=== PATIENT | female | born 2000 | race African-American/Black ===

== ENCOUNTER 2023-11-11 09:50 | Emergency (ER) | payer OTHER, MEDICAID, SELFPAY ==
[2023-11-11 09:56] VITALS: BP 138/84; PULSE 104; RESP 18; TEMP 37; O2SAT 100; BMI 29.9
--- NOTE | 2023-11-11 10:22 | PC.NURSE ---
Pt c/o SOB x2 days. Pt denies having any cp, fever, pain or being around anyone that has been sick. Pt states that she is unsure if this is anxiety or if she is actually sick. Pt has never been formally dx with anxiety or panic attack. Pt a&ox4. Answers all questions appropriately and speaking in full sentences.
[2023-11-11 10:55] LABS: Influenza A - CEPHEID Flu A NEGATIVE (NEGATIVE); Influenza B - CEPHEID Flu B NEGATIVE (NEGATIVE); Respiratory Syncytial Virus Negative (Negative)
[2023-11-11 10:57] LABS: COVID-19 CEPHEID 4-PLEX PCR Negative (Negative)
--- NOTE | 2023-11-11 11:20 | ED.SOB ---
HPI - SOB/Dyspnea <Ayanna Dorsey PA-C - Last Filed: 11/11/23 14:09> General Chief Complaint: Shortness of Breath/Dyspnea Stated Complaint: T-2 SOB Time Seen by Provider: 11/11/23 11:12 Source: patient and family Mode of arrival: Ambulatory Limitations: no limitations History of Present Illness HPI Narrative: Patient is a 23-year-old female who presents accompanied by her mom due to concern for shortness of breath. This has been ongoing for 2 days. She vapes regularly and smokes marijuana. She reports that for the past 2 days it is felt difficult to get a full breath and she has felt unsatisfied with the breaths that her body naturally takes. She has to intentionally take deep breaths in order to feel satisfied. She notes that this is worse with activity, better with rest. She denies palpitations but notices her heart beating fast when she goes up or down the stairs. She denies fever, runny nose and has a rare cough. She reports feeling similarly when she had COVID in August. Patient denies recent travel or immobilization, taking hormones, history of blood clots, cough with hemoptysis. She has no calf swelling or tenderness. No history of asthma. Related Data Home Medications Medication Instructions Recorded Confirmed No Known Home Medications 11/11/23 11/11/23 Allergies Allergy/AdvReac Type Severity Reaction Status Date / Time No Known Drug Allergies Allergy Verified 11/11/23 10:39 Review of Systems <Ayanna Dorsey PA-C - Last Filed: 11/11/23 14:09> Review of Systems ROS Unobtainable: All systems reviewed & are unremarkable except as noted in HPI and below Patient History <Ayanna Dorsey PA-C - Last Filed: 11/11/23 14:09> Social History Smoking Status: Current every day smoker Smoking Status: Current every day smoker tobacco type: vaping alcohol intake frequency: 0-2 drinks per day Substance Use Type: marijuana Exam <Ayanna Dorsey PA-C - Last Filed: 11/11/23 14:09> Narrative Exam Narrative: GENERAL: 23 year old patient appears stated age. Well-developed patient, in no acute distress. NEURO: AOx3. HEAD: Atraumatic. Normocephalic. EYES: Pupils equal round and reactive. Extraocular motions intact. No scleral icterus. No injection or drainage. ENT: Nose without bleeding or purulent drainage. Airway patent. CARDIOVASCULAR: Regular rate and rhythm without murmurs, gallops, or rubs. RESPIRATORY: Clear to auscultation. Breath sounds equal bilaterally. No wheezes, rales, or rhonchi. SKIN: No rash or erythema of visible areas. Calves supple, no erythema or edema. Initial Vital Signs Initial Vital Signs: Vital Signs Temperature 98.6 F 11/11/23 09:56 Pulse Rate 104 H 11/11/23 09:56 Respiratory Rate 18 11/11/23 09:56 Blood Pressure 138/84 11/11/23 09:56 Pulse Oximetry 100 11/11/23 09:56 Oxygen Delivery Method Room Air 11/11/23 09:56 <Aleja José MD - Last Filed: 11/11/23 14:39> Initial Vital Signs Initial Vital Signs: Vital Signs Temperature 98.6 F 11/11/23 09:56 Pulse Rate 104 H 11/11/23 09:56 Respiratory Rate 18 11/11/23 09:56 Blood Pressure 138/84 11/11/23 09:56 Pulse Oximetry 100 11/11/23 09:56 Oxygen Delivery Method Room Air 11/11/23 09:56 Scores <Ayanna Dorsey PA-C - Last Filed: 11/11/23 14:09> Roman' Criteria for PE Clinical signs and symptoms of DVT: No PE is #1 Dx or equally likely: No Heart rate > 100: No Immobilization at least 3 days or surg in previous 4 weeks: No History of PE or DVT: No Hemoptysis: No Malignancy w/Treatment within 6 months or palliative: No Wells' PE Score total: 0 Wells' Criteria for DVT Active Cancer (Treatment within 6 months): No Bedridden recently >3 days or major surgery within 4 weeks: No Calf Swelling >3cm compared to other leg: No Collateral (nonvericose) superficial veins present: No Entire leg swollen: No Localized tenderness along the deep vein system: No Pitting edema, confined to symtomatic leg: No Paralysis, paresis, or recent plaster immobilization of ext: No Previously documented DVT: No Alternative dx to DVT as likely or more likely: No Roman' criteria for DVT: 0 <Aleja José MD - Last Filed: 11/11/23 14:39> Wells' Criteria for PE Wells' PE Score total: 0 Wells' Criteria for DVT Wells' criteria for DVT: 0 Course <Ayanna Dorsey PA-C - Last Filed: 11/11/23 14:09> Orders Ordered: ED Orders 11/11/23 10:04 Covid-19 + FLU A/B + RSV - PCR Stat 11/11/23 11:19 XR chest 2V Stat EKG-12 Lead Stat Vital Signs Vital signs: Vital Signs - 8 hr 11/11/23 09:56 11/11/23 13:02 Temperature 98.6 F 98.0 F Pulse Rate 104 H 74 Respiratory Rate 18 20 Blood Pressure 138/84 129/76 Pulse Oximetry 100 99 Oxygen Delivery Method Room Air Room Air <Aleja José MD - Last Filed: 11/11/23 14:39> Orders Ordered: ED Orders 11/11/23 10:04 Covid-19 + FLU A/B + RSV - PCR Stat 11/11/23 11:19 XR chest 2V Stat EKG-12 Lead Stat Vital Signs Vital signs: Vital Signs - 8 hr 11/11/23 09:56 11/11/23 13:02 Temperature 98.6 F 98.0 F Pulse Rate 104 H 74 Respiratory Rate 18 20 Blood Pressure 138/84 129/76 Pulse Oximetry 100 99 Oxygen Delivery Method Room Air Room Air MDM - SOB/Dyspnea <Ayanna Dorsey PA-C - Last Filed: 11/11/23 14:09> Lab Data Labs: Lab Results 11/11/23 Range/Units 10:04 SARS-CoV-2 (PCR) Negative (Negative) Influenza A (RT-PCR) Flu a negative (NEGATIVE) Influenza B (RT-PCR) Flu b negative (NEGATIVE) RSV (PCR) Negative (Negative) Imaging Data Chest x-ray: Radiologist's Impression: PROCEDURE: XR CHEST 2V INDICATIONS: shortness of breath TECHNIQUE: 2 views of the chest were acquired. COMPARISON: None. FINDINGS: Surgical changes and devices: None. Lungs and pleura: Lungs are clear. No pleural effusions or pneumothorax. Mediastinum: Mediastinal contours are normal. Heart size is normal. Bones and chest wall: No suspicious bony abnormalities. Soft tissues appear unremarkable. IMPRESSION: No acute cardiopulmonary abnormality is seen. Dictated by: Bonnie Brown M.D. on 11/11/2023 at 12:50 Approved by: Bonnie Brown M.D. on 11/11/2023 at 12:50 ECG Data Interpretation: Normal sinus rhythm rate 88, MI 138, QRS 80, QT 352 MDM Narrative Medical decision making narrative: Multiple etiologies for patient's symptoms considered including, but not limited to: PE, anxiety, pneumonia, pneumothorax, viral upper respiratory illness, asthma, chf PE considered, Wells criteria for PE score is 0, Wells criteria for DVT score 0. No further evaluation indicated. Lung sounds are clear without wheeze, rhonchi or rales. Heart rate is regular. There is no peripheral edema. EKG shows normal sinus rhythm. Chest x-ray is normal. No evidence of underlying pathology to explain patient's symptoms today. This may be related to underlying anxiety or due to vaping and smoking marijuana. Discussed vaping and marijuana cessation and watchful waiting. Encouraged patient to establish primary care to follow up. Return precautions advised. Patient's symptoms improved over duration of stay with above-stated therapies. Findings and discharge diagnosis discussed with patient/family followed by verbalization of understanding Return precautions discussed with patient/family whom verbalize understanding of diagnosis and plan <Aleja José MD - Last Filed: 11/11/23 14:39> Lab Data Labs: Lab Results 11/11/23 Range/Units 10:04 SARS-CoV-2 (PCR) Negative (Negative) Influenza A (RT-PCR) Flu a negative (NEGATIVE) Influenza B (RT-PCR) Flu b negative (NEGATIVE) RSV (PCR) Negative (Negative) Discharge Plan Departure Patient Disposition: Home Clinical Impression: Dyspnea, unspecified Qualifiers: Dyspnea type: unspecified Qualified Code(s): R06.00 - Dyspnea, unspecified Instructions: How to Manage Shortness of Breath Activity Restrictions/Additional Instructions: *You have been diagnosed with perceived shortness of breath. Today in the emergency room we did an EKG, which was normal, a viral panel to test for COVID flu and RSV which was all negative, and a chest x-ray. There is no evidence of an underlying abnormality that would be causing your shortness of breath. I would suggest a period of watchful waiting. If the symptoms persist, I would follow up with primary care. If they worsen, please come back to the emergency room. We also discussed signs and symptoms of a blood clot in your leg or in your lungs and when to return to the emergency room. I would advise that you stop vaping and smoking marijuana as this may be contributing to your symptoms. *What to do: *Please continue to take your regular medications as directed. [ ] New medication prescriptions sent to your pharmacy: [ ] [ ] New medication written as a paper prescription [x] No new medications given *Please follow up with your primary care provider in 2-3 days, call for an appointment. Let them know you were seen in the Emergency Department and that we ask that you be seen in follow up. We will electronically transmit a record of today's note if your PCP is in our system *If you do not have a primary care provider please contact the [facility] Resource line at [phone]. They will ask some questions about your medical history and help get you set up with a doctor in the community. *Return to Emergency Department if you should have any new, worsening or concerning symptoms, such as [fever greater than 101 F, shaking chills, worsening pain, persistent vomiting or other concerning symptoms]. Prescriptions: No Action No Known Home Medications Stand Alone Forms: Patient Portal/API ED Sign-out <Aleja José MD - Last Filed: 11/11/23 14:39> [facility] Att[facility]: I was immediately available in the department for consultation throughout this patient's visit. Aleja José MD
[2023-11-11 13:02] VITALS: BP 129/76; PULSE 74; RESP 20; TEMP 36.7; O2SAT 99
== END 2023-11-11 13:08 | disposition home or self-care (01) ==
PROVIDERS: Emergency Medicine; Emergency Provider Physician Assistant
DX: R06.00 Dyspnea, unspecified (principal)
CPT/HCPCS: 0241U; 71046; 93005; 99283

== ENCOUNTER → 2024-08-09 09:57 | Outpatient (ROUT) | payer SELFPAY ==
[2024-08-09 10:00] LABS: Urine Drug Scr, Empl Non-NIDA See Separate Report
== END ==
DX: Z02.1 Encounter for pre-employment examination (principal)
CPT/HCPCS: 81099

== ENCOUNTER 2024-11-08 17:32 | Emergency (ER) | payer SELFPAY ==
[2024-11-08 17:47] VITALS: BP 141/87; PULSE 66; RESP 18; TEMP 36.1; O2SAT 99; BMI 35.6
--- NOTE | 2024-11-08 18:00 | EKG_ITS ---
[address] [id number] [address] [address] Test Date: 2024-11-08 Pat Name: Linda Goodwin Department: [facility] Room: Gender: Female Eap Consultant: ROSHAN : 2000 Requested By: Order Number: [id number] Reading MD: Presley Cain Measurements Intervals [place] Rate: 70 P: 12 OK: 160 QRS: 35 QRSD: 76 T: 27 QT: 384 QTc: 414 Interpretive Statements Normal sinus rhythm Electronically Signed On 11-09-2024 7:36:24 PST by Presley Cain
[2024-11-08 20:12] VITALS: BP 131/72; PULSE 79; RESP 16; O2SAT 99
[2024-11-08 21:41] VITALS: BP 125/72; PULSE 67; O2SAT 99
--- NOTE | 2024-11-08 21:57 | ED_ITS ---
HPI - Chest Pain General Chief Complaint: Chest Pain Stated Complaint: chest pain x 2 days, going into rt arm Time Seen by Provider: 11/08/24 21:57 History of Present Illness HPI narrative: 24-year-old female with no significant past medical history presents for right- sided chest pain ongoing persistent for the past 2 days, states it also feels like it radiates to her right arm. States that she did start recently working out but came into the ED for further evaluation treatment. Denies any other symptoms such as headache visual disturbances shortness breath fever chills nausea vomiting abdominal pain or any other GI/ symptoms time. Related Data Home Medications Medication Instructions Recorded Confirmed No Known Home Medications 11/11/23 11/11/23 Allergies Allergy/AdvReac Type Severity Reaction Status Date / Time No Known Drug Allergies Allergy Verified 11/11/23 10:39 Review of Systems Review of Systems Narrative: General: Denies fever, chills, weight loss HEENT: Denies headache, eye drainage, eye irritation, head trauma, sore throat, voice change Cardiovascular: Positive chest pain, denies palpitations, shortness of breath, tachycardia Respiratory: Denies any shortness of breath, cough, wheeze, stridor GI/: Denies any abdominal pain, nausea, vomiting, diarrhea, bright red blood per rectum, melanotic stools, urinary frequency, urinary retention, dysuria, hematuria MSK: Denies any joint pain, muscle pains, swelling Skin: Denies any rashes, lesions, discoloration Neuro: Denies any headache, lightheadedness, dizziness, fainting, weakness Psych: Denies SI/HI Patient History Social History Smoking Status: Current every day smoker Smoking Status: Current every day smoker tobacco type: vaping alcohol intake frequency: 0-2 drinks per day Exam Narrative Exam Narrative: General: Cooperative, comfortable, well-developed, not in acute distress HEENT: Normocephalic, atraumatic, PERRLA, normal sclera, eyelids normal, Neck: Active full range of motion, atraumatic Chest: Reproducible chest pain upon extension of right upper extremity, no overlying erythema ecchymosis Normal to inspection, negative crepitus, no overlying erythema ecchymosis Respiratory: Normal respiratory effort, not in acute respiratory distress, clear to auscultation bilaterally negative cough, wheeze, tachypnea, rhonchi, rales Cardiology: Regular rate rhythm negative gallop, murmur, rubs GI/: Normal to inspection, soft, nonrigid, no tenderness to palpation, exam deferred MSK: Full range of active range of motion of all 4 extremities, atraumatic Skin: No rashes lesions noted Neuro: Alert awake oriented x3, moves all 4 extremities spontaneously, cranial nerves intact, able to answer all questions appropriately follows commands surendra ropriately Psych: Cooperative, negative suicidal or homicidal ideations Initial Vital Signs Initial Vital Signs: Vital Signs Temperature 97.0 F L 11/08/24 17:47 Pulse Rate 66 11/08/24 17:47 Respiratory Rate 18 11/08/24 17:47 Blood Pressure 141/87 H 11/08/24 17:47 Pulse Oximetry 99 11/08/24 17:47 Oxygen Delivery Method Room Air 11/08/24 17:47 Course Orders Ordered: ED Orders 11/08/24 17:51 EKG-12 Lead Stat 11/08/24 21:58 XR chest 1V Stat Complete Blood Count AUTO DIFF Stat Comprehensive Metabolic Panel Stat Lipase Stat Troponin & CK Cardiac Panel Stat 11/08/24 21:59 MAG [Magnesium] Stat Discontinued Medications Aspirin (Aspirin 81 Mg Chew Tab) 324 mg PO NOW ONE Stop: 11/08/24 21:59 Vital Signs Vital signs: Vital Signs - 8 hr 11/08/24 17:47 11/08/24 20:12 11/08/24 21:41 Temperature 97.0 F L Pulse Rate 66 79 67 Respiratory Rate 18 16 Blood Pressure 141/87 H 131/72 125/72 Pulse Oximetry 99 99 99 Oxygen Delivery Method Room Air Room Air MDM - Chest Pain Differential Diagnosis Differential diagnosis: Likely st elevation myocardial infarction, chest pain and other (Costochondritis, muscle strain) Imaging Data Chest x-ray: Radiologist's Impression: [address] [address] XRay Report Signed Patient: Linda Goodwin MR#: [id number] : 2000 Acct:[id number] Age/Sex: 24 / F Date of Service: 11/08/24 Loc: ED Accession Number: [id number] Procedure: XR chest 1V Ordering Provider: Alex Ruvalcaba D.O. PROCEDURE: XR CHEST 1V INDICATIONS: chest pain TECHNIQUE: One view of the chest was acquired. COMPARISON: [facility], CR, XR CHEST 2V, 11/11/2023, 11:52. FINDINGS: Surgical changes and devices: None. Lungs and pleura: Lungs are clear. No pleural effusions or pneumothorax. Mediastinum: Mediastinal contours appear normal. Heart size is normal. Bones and chest wall: No suspicious bony lesions. Overlying soft tissues appear unremarkable. IMPRESSION: No acute cardiopulmonary abnormality is seen. ECG Data Interpretation: EKG interpreted ED physician sinus 70 beats per minute QTC [address] changes no STEMI MDM Narrative Medical decision making narrative: 24-year-old female without any significant past medical history comes into the ED from home for evaluation of right-sided chest pain and right arm pain, states it started after she had a work out a proximally 3 days ago, she states that the pain is only there whenever she extends her right arm, she states that the pain initially was just to her chest she attributed this to her workup but then today noticed it radiate to her right arm therefore was worried and wanted to come into the ED for further evaluation treatment. Patient had EKG nonischemic, chest x-ray without any acute cardiopulmonary abnormalities. Patient was offered lab work which included troponin to rule out additional cardiac abnormalities such as NSTEMI, however she states that she feels comfortable going home without any additional lab work intervention. On exam patient with reproducible pain with extension of the right upper extremity. Patient's symptoms more secondary to costochondritis/muscle strain, she was given strict return precautions she verbalized understanding of this and agrees to being discharged home with outpatient follow up Discharge Plan Departure Patient Disposition: Home Clinical Impression: Chest wall muscle strain Activity Restrictions/Additional Instructions: Please follow up with your primary care doctor Please read the discharge instructions sheet carefully and bring all papers to all doctor follow-up visits, as it may contain information that your doctor may want to see. Disease processes change and evolve, if your symptoms worsen or if you develop any new symptoms that are concerning to you please return for evaluation. Your evaluation today does not show any evidence of any life- threatening/serious illnesses requiring admission to the hospital or surgery. Please follow-up with your doctor for re-evaluation in approximately 1 day. Seek immediate medical attention for any worrisome symptoms. *If you do not have a primary care provider please contact the [facility] Resource line at [phone]. They will ask some questions about your medical history and help get you set up with a doctor in the community. Prescriptions: No Action No Known Home Medications Stand Alone Forms: Patient Portal/API/Survey
--- NOTE | 2024-11-08 21:58 | DI.RAD.S_ITS ---
PROCEDURE: XR CHEST 1V INDICATIONS: chest pain TECHNIQUE: One view of the chest was acquired. COMPARISON: [facility], CR, XR CHEST 2V, 11/11/2023, 11:52. FINDINGS: Surgical changes and devices: None. Lungs and pleura: Lungs are clear. No pleural effusions or pneumothorax. Mediastinum: Mediastinal contours appear normal. Heart size is normal. Bones and chest wall: No suspicious bony lesions. Overlying soft tissues appear unremarkable. IMPRESSION: No acute cardiopulmonary abnormality is seen. Dictated by: Giancarlo Vasquez M.D. on 11/08/2024 at 22:15 Approved by: Giancarlo Vasquez M.D. on 11/08/2024 at 22:15
[2024-11-08 22:00] VITALS: BP 110/58; PULSE 54; O2SAT 99
[2024-11-08 22:30] VITALS: BP 121/68; PULSE 55; O2SAT 99
[2024-11-08 22:39] VITALS: BP 149/73; PULSE 83; RESP 16; O2SAT 99
== END 2024-11-08 22:47 | disposition home or self-care (01) ==
PROVIDERS: Emergency Provider Student in an Organized Health Care Education/Training Program
DX: S29.011A Strain of muscle and tendon of front wall of thorax, initial encounter (principal); X58.XXXA Exposure to other specified factors, initial encounter; F17.290 Nicotine dependence, other tobacco product, uncomplicated
CPT/HCPCS: 71045; 93005; 99281; 99284

== ENCOUNTER 2024-11-22 04:47 | Emergency (ER) | payer OTHER, SELFPAY ==
--- NOTE | 2024-11-22 04:55 | ED_ITS ---
HPI - Abdominal Pain General Chief Complaint: Abdominal Pain Stated Complaint: abd pain Time Seen by Provider: 11/22/24 04:55 Source: patient, RN notes reviewed and old records reviewed Mode of arrival: Ambulatory Limitations: no limitations History of Present Illness HPI narrative: 24-year-old female with no reported medical issues who presents with complaint of abdominal pain that initially was periumbilical for the past week which has now moved over to the right lower quadrant. Patient states it is worse if she was walking or riding in the car and that is a bump. Patient states no fevers or chills. No nausea or vomiting. No chest pain or shortness of breath. No diarrhea or constipation. No dysuria urgency or frequency. No new vaginal bleeding or discharge. Patient states her last menstrual period was the end of October. Does have a history of having a piercing at her umbilicus but has been out for many years. She was noticed that is a little bit harder at that site than normal he was but she normally has some hardness or induration at that area. Patient states pain has since moved to the right lower quadrant in the past 24 hours. She had Advil about 7:00 pm this evening defers anything additional. Patient denies any daily medications. Denies any prior surgeries. No known drug allergies. Does use tobacco, occasional alcohol, no recreational drugs. Related Data Previous Rx's Medication Instructions Recorded doxycycline hyclate 100 mg tablet 100 mg PO BID #14 tabs 11/22/24 Allergies Allergy/AdvReac Type Severity Reaction Status Date / Time No Known Drug Allergies Allergy Verified 11/11/23 10:39 Review of Systems Review of Systems ROS Unobtainable: All systems reviewed & are unremarkable except as noted in HPI and below Patient History Social History Smoking Status: Current every day smoker Smoking Status: Current every day smoker tobacco type: vaping alcohol intake frequency: 0-2 drinks per day Exam Narrative Exam Narrative: GENERAL: Alert and oriented x three, female in mild distress HEENT: Head normocephalic, atraumatic, EOMI, pupils reactive, face symmetric, moist mucous membranes NECK: Supple, full range of motion CARDIOVASCULAR: Regular rate and rhythm without murmurs, rubs or gallops. RESPIRATORY: Breath sounds equal bilaterally, no wheezes rales or rhonchi. ABDOMEN: Soft, patient has periumbilical tenderness, there is some induration at the 12 o'clock position patient has what appears to be a prior piercing that has healed no with no hardware present. It is slightly indurated with some slight erythema. Normoactive bowel sounds all 4 quadrants. No guarding or rebound, rigidity, no mass : No CVA tenderness EXTREMITIES: Normal range of motion, no clubbing or edema. Neurovascularly intact NEUROLOGICAL: Cranial nerves II through XII grossly intact. Moving all extremities SKIN: Warm, dry, no petechiae, no rashes or lesions. Initial Vital Signs Initial Vital Signs: Vital Signs Temperature 98.5 F 11/22/24 04:57 Pulse Rate 104 H 11/22/24 04:57 Respiratory Rate 18 11/22/24 04:57 Blood Pressure 156/92 H 11/22/24 04:57 Pulse Oximetry 98 11/22/24 04:57 Oxygen Delivery Method Room Air 11/22/24 04:57 Course Orders Ordered: ED Orders 11/22/24 04:55 Urine Microscopic Stat 11/22/24 05:06 CT abdomen pelvis w con Stat 11/22/24 05:14 Complete Blood Count AUTO DIFF Stat Comprehensive Metabolic Panel Stat Lipase Stat Vital Signs Vital signs: Vital Signs - 8 hr 11/22/24 04:57 11/22/24 05:00 11/22/24 05:00 Temperature 98.5 F Pulse Rate 104 H 92 H Respiratory Rate 18 17 Blood Pressure 156/92 H 147/86 H Pulse Oximetry 98 97 Oxygen Delivery Method Room Air Room Air MDM - Abdominal Pain Lab Data 11/22/24 05:14 11/22/24 05:14 Labs: Lab Results 11/22/24 11/22/24 Range/Units 04:55 05:14 WBC 11.9 H (4.5-11.0) X10^3/uL RBC 4.73 (4.0-5.2) X10^6/uL Hgb 13.4 (12.0-16.0) g/dL Hct 40.6 (36-46) % MCV 85.8 (80-100) fL MCH 28.3 (26-34) PG MCHC 33.0 (30-36) % RDW 13.2 (11.6-14.8) % Plt Count 246 (150-400) X10^3/uL Neut % (Auto) 73.3 (50-75) % Lymph % (Auto) 20.5 L (25-40) % [place] % (Auto) 5.5 (3-14) % Eos % (Auto) 0.3 L (2-4) % Baso % (Auto) 0.4 (0-2) % Neut # (Auto) 8700 H (1884-0627) /uL Lymph # (Auto) 2400 (9297-8944) /uL [place] # (Auto) 700 (0-900) /uL Eos # (Auto) 0 (0-450) /uL Baso # (Auto) 0 (0-100) /uL Sodium 140 (137-145) mmol/L Potassium 3.8 (3.4-5.1) mmol/L Chloride 107 (98-107) mmol/L Carbon Dioxide 20 L (22-32) mmol/L BUN 10 (7-17) mg/dL Creatinine 0.72 (0.52-1.04) mg/dL Estimated GFR > 60 (>60) mL/min BUN/Creatinine Ratio 13.9 (6-22) Glucose 97 (70-100) mg/dL Calcium 9.7 (8.4-10.2) mg/dL Total Bilirubin 0.4 (0.2-1.3) mg/dL AST 28 (14-36) IU/L ALT 31 (<35) IU/L Alkaline Phosphatase 68 (38-126) U/L Total Protein 8.8 H (6.3-8.2) g/dL Albumin 4.8 (3.5-5.0) g/dL Globulin 4.0 (1.7-4.1) g/dL Albumin/Globulin Ratio 1.2 (1.0-2.8) Lipase 86 (23-300) U/L Urine RBC None seen (0-5/HPF) Urine WBC None seen (0-5/HPF) Ur Squamous Epith Cells 1-5 /hpf (0-5/HPF) Urine Bacteria None seen (None) Ur Culture Indicated? Cult not indicated Vol Urine Centrifuged 10ml (spun) Point of care testing: Point of Care Testing Test Results Negative Urine Dip Bedside Urine Glucose Negative Bedside Urine Bilirubin - Negative Bedside Urine Ketone +/- 5 Urine Specific [place] 1.030 Bedside Urine Occult Blood - Negative Bedside Urine pH 6.0 Bedside Urine Protein - Negative Bedside Urine Urobilinogen - Negative Bedside Urine Nitrite - Negative Bedside Urine Leukocytes - Negative Esterase MDM Narrative Medical decision making narrative: 24-year-old female with periumbilical pain which now radiates to the right lower quadrant. Patient does have what appears to be little bit of cellulitis of the umbilicus with some mild induration but she notes the pain radiates down words towards the right lower quadrant now. Because of this labs and imaging were obtained. Point of care urine is negative, point of care is negative. Labs white count 11.9 hemoglobin of 13 platelets 246. CO2 is 20, electrolytes are otherwise appropriate AST ALT are normal, total protein is 8.8 lipase is normal at 86. CT abd/pelvis mild hepatic steatosis no free fluid within the pelvis or pelvic adenopathy left ovary has a crenated appearance: And small bowel are unremarkable normal-appearing appendix. No evidence of colitis, diverticulitis, bowel obstruction, obstructive uropathy or acute appendicitis. Trace pericardial effusion. Patient did have little bit of erythema and induration at the umbilicus we will treat for a cellulitis. Discharge Plan Departure Patient Disposition: Home Clinical Impression: Cellulitis of umbilicus Instructions: DI for Cellulitis -- Adult Activity Restrictions/Additional Instructions: Follow up for recheck as needed. Believe you developed a little bit of a cellulitis or infection in the skin around your belly button nor umbilicus. Take oral antibiotics until completed. Prescription sent to [facility] in [place]. Please return for fevers, increasing redness or swelling, rapidly worsening pain, vomiting, black or bloody stools, lightheadedness or passing out or other new or concerning changes. Prescriptions: New doxycycline hyclate 100 mg tablet 100 mg PO BID Qty: 14 0RF Stand Alone Forms: Patient Portal/API/Survey
[2024-11-22 04:57] VITALS: BP 156/92; PULSE 104; RESP 18; TEMP 36.9; O2SAT 98; BMI 35.1
[2024-11-22 05:00] VITALS: BP 147/86; PULSE 92; RESP 17; O2SAT 97
--- NOTE | 2024-11-22 05:06 | DI.CT.S_ITS ---
PROCEDURE: CT ABDOMEN PELVIS W CON INDICATIONS: abd pain periumbical now RLQ x 1 week TECHNIQUE: After the administration of intravenous contrast, axial sections acquired from the lung bases to the pubic symphysis. Coronal and sagittal reformats were performed. For radiation dose reduction, the following was used: automated exposure control, adjustment of mA and/or kV according to patient size. COMPARISON: None. FINDINGS: Image quality: Diagnostic. Lower Chest: No significant findings. ABDOMEN: Liver: No solid mass. Gallbladder: No radiopaque gallstones or wall thickening. Biliary ducts: No biliary dilation. Pancreas: No ductal dilation. Spleen: Size is within normal limits. Adrenal Glands: No adrenal nodules. Kidneys and Ureters: No hydronephrosis. No solid mass. No complex renal cystic lesion which requires follow up. Stomach and Bowel: Normal colonic caliber, without significant wall thickening. Normal appendix Peritoneum: No abnormal intraperitoneal fluid. No free air. Ventral Wall: No significant ventral hernia. Abdominal Nodes: No retroperitoneal or mesenteric adenopathy by size criteria. Vessels: Aorta and inferior vena cava are normal in size. PELVIS: Pelvic Organs: Unremarkable. Incidental note made of left ovarian corpus luteum. Bladder: No bladder wall thickening, accounting for underdistention. Pelvic Nodes: No enlarged lymph nodes. Miscellaneous: No inguinal hernias are seen. Bones: No aggressive osseous abnormality. IMPRESSION: No acute abdominal process noted. Left ovarian corpus luteum. Comment: Final report is concordant with preliminary interpretation provided by [facility]. Dictated by: Nazario Gibbons M.D. on 11/22/2024 at 7:46 Approved by: Nazario Gibbons M.D. on 11/22/2024 at 7:49
[2024-11-22 05:30] VITALS: PULSE 86; O2SAT 98
[2024-11-22 05:30] LABS: Bacteria Urine None Seen; Culture Indicated Urine Cult Not Indicated; RBC Urine None Seen (0-5/HPF); Squamous Epithelial Cell Urine 1-5 /HPF (0-5/HPF); Urine Volume 10mL (spun); WBC Urine None Seen (0-5/HPF)
[2024-11-22 05:34] LABS: Add Manual Diff / Slide Review NO; Basophils Absolute Auto 0 /uL (0-100); Basophils Percent Auto 0.4 % (0-2); Eosinophils Absolute Auto 0 /uL (0-450); Eosinophils Percent Auto 0.3 % (2-4); Hematocrit 40.6 % (36-46); Hemoglobin 13.4 g/dL (12.0-16.0); Lymphocytes Absolute Auto 2400 /uL (1100-4500); Lymphocytes Percent Auto 20.5 % (25-40); Mean Corpuscular Hemoglobin 28.3 PG (26-34); Mean Corpuscular Volume 85.8 fL (80-100); Monocytes Absolute Auto 700 /uL (0-900); Monocytes Percent Auto 5.5 % (3-14); Neutrophils Absolute Auto 8700 /uL (1500-7000); Neutrophils Percent Auto 73.3 % (50-75); Platelet Count 246 X10^3/uL (150-400); Red Blood Cell Count 4.73 X10^6/uL (4.0-5.2); Red Cell Distribution Width 13.2 % (11.6-14.8); White Blood Cell Count 11.9 X10^3/uL (4.5-11.0)
[2024-11-22 05:47] LABS: Alanine Aminotransferase 31 IU/L (<35); Albumin 4.8 g/dL (3.5-5.0); Albumin Globulin Ratio 1.2 (1.0-2.8); Alkaline Phosphatase 68 U/L (38-126); Aspartate Aminotransferase 28 IU/L (14-36); BUN Creatinine Ratio 13.9 (6-22); Bilirubin Total 0.4 mg/dL (0.2-1.3); Blood Urea Nitrogen 10 mg/dL (7-17); Calcium 9.7 mg/dL (8.4-10.2); Carbon Dioxide 20 mmol/L (22-32); Chloride 107 mmol/L (98-107); Estimated Glomerular Filt Rate > 60 mL/min (>60); Glucose 97 mg/dL (70-100); HEMOLYSIS < 15 (0-50); Lipase 86 U/L (23-300); Potassium 3.8 mmol/L (3.4-5.1); Sodium 140 mmol/L (137-145); Total Protein 8.8 g/dL (6.3-8.2)
[2024-11-22 06:00] VITALS: PULSE 80; RESP 18; O2SAT 98
[2024-11-22 06:27] VITALS: PULSE 80; RESP 16; O2SAT 98
[2024-11-22 06:28] VITALS: BP 115/66
[2024-11-22] MEDS: DOXYCYCLINE HYCLATE 100 MG TABLET PO (06:28)
== END 2024-11-22 06:32 | disposition home or self-care (01) ==
PROVIDERS: Emergency Provider Emergency Medicine
DX: L03.316 Cellulitis of umbilicus (principal); F17.290 Nicotine dependence, other tobacco product, uncomplicated
CPT/HCPCS: 36415; 74177; 80053; 81003; 81015; 81025; 83690; 85025; 99284; Q9967

== ENCOUNTER 2024-12-02 19:23 | Emergency (ER) | payer OTHER, SELFPAY ==
[2024-12-02 20:34] VITALS: BP 128/66; PULSE 76; RESP 16; TEMP 37.1; O2SAT 98; BMI 35.1
== END 2024-12-02 23:38 | disposition left against medical advice (07) ==
PROVIDERS: Emergency Provider Emergency Medicine
CPT/HCPCS: 99281

== ENCOUNTER 2024-12-03 06:29 | Emergency (ER) | payer OTHER, SELFPAY ==
[2024-12-03 06:33] VITALS: BP 128/60; PULSE 94; RESP 15; TEMP 36.9; O2SAT 98; BMI 35.1
--- NOTE | 2024-12-03 07:03 | ED_ITS ---
HPI - Recheck/Abnormal Lab/Rx General Chief Complaint: Recheck/Abnormal Lab/Rx Stated Complaint: Cellulitis Umbilicus getting worse Time Seen by Provider: 12/03/24 06:43 Source: patient Mode of arrival: Ambulatory History of Present Illness HPI narrative: 24-year-old female with history of remote umbilical piercing, seen here 11/22/2024 with abdominal pain that was initially central and radiated to the right lower quadrant, concern for appendicitis at that time, CT imaging did not confirm appendicitis but did show umbilical cellulitis, patient was discharged on oral doxycycline course of antibiotics. Patient reports that the area of pain did improve, now with 2 days of red pink coloration supraumbilical. No drainage of fluid. No fevers or chills. No pain in upper or lower quadrants or lateral quadrants. No instrumentation or piercing or local trauma since previous visit. Related Data Previous Rx's Medication Instructions Recorded clindamycin HCl 300 mg capsule 300 mg PO QID 7 days #28 caps 12/03/24 Allergies Allergy/AdvReac Type Severity Reaction Status Date / Time No Known Drug Allergies Allergy Verified 11/11/23 10:39 Patient History Social History Smoking Status: Current every day smoker Smoking Status: Current every day smoker tobacco type: vaping alcohol intake frequency: 0-2 drinks per day Exam Narrative Exam Narrative: GENERAL: Well-developed patient, in mild distress. HEAD: Atraumatic. Normocephalic. EYES: Pupils equal round and reactive. Extraocular motions intact. No scleral icterus. No injection or drainage. ENT: Nose without bleeding, purulent drainage. Throat without erythema, tonsillar hypertrophy or exudate. Airway patent. NECK: Trachea midline. Non tender CARDIOVASCULAR: Regular rate and rhythm without murmurs, gallops, or rubs. RESPIRATORY: Clear to auscultation. Breath sounds equal bilaterally. No wheezes, rales, or rhonchi. GASTROINTESTINAL: Abdomen with supraumbilical piercing spot, no expressible fluid, surrounding erythema about 4 x 3 cm. No fluctuance, some induration. EXTREMITIES: No edema or joint tenderness. BACK: Nontender without deformity or crepitance. No flank tenderness. NEURO: AOx3. Motor functions grossly nonfocal SKIN: No rash or erythema of visible areas Initial Vital Signs Initial Vital Signs: Vital Signs Temperature 98.5 F 12/03/24 06:33 Pulse Rate 94 H 12/03/24 06:33 Respiratory Rate 15 12/03/24 06:33 Blood Pressure 128/60 12/03/24 06:33 Pulse Oximetry 98 12/03/24 06:33 Oxygen Delivery Method Room Air 12/03/24 06:33 Course Orders Ordered: ED Orders 12/03/24 06:53 CBC Auto Diff [Complete Blood Count AUTO DIFF] Stat CMP [Comprehensive Metabolic Panel] Stat 12/03/24 07:21 US abdomen limited Stat Vital Signs Vital signs: Vital Signs - 8 hr 12/03/24 06:33 Temperature 98.5 F Pulse Rate 94 H Respiratory Rate 15 Blood Pressure 128/60 Pulse Oximetry 98 Oxygen Delivery Method Room Air MDM - Recheck/Abnormal Lab/Rx Lab Data Attestation: I reviewed the patient's lab results. Lab results narrative: White blood cell count 9500, hemoglobin 13, platelets adequate. Basic metabolic panel unremarkable. Liver functions normal. 12/03/24 06:53 12/03/24 06:53 Labs: Lab Results 12/03/24 Range/Units 06:53 WBC 9.5 (4.5-11.0) X10^3/uL RBC 4.54 (4.0-5.2) X10^6/uL Hgb 13.0 (12.0-16.0) g/dL Hct 38.4 (36-46) % MCV 84.6 (80-100) fL MCH 28.7 (26-34) PG MCHC 33.9 (30-36) % RDW 13.0 (11.6-14.8) % Plt Count 287 (150-400) X10^3/uL Neut % (Auto) 73.1 (50-75) % Lymph % (Auto) 20.5 L (25-40) % [place] % (Auto) 5.4 (3-14) % Eos % (Auto) 0.3 L (2-4) % Baso % (Auto) 0.7 (0-2) % Neut # (Auto) 7000 (0169-4566) /uL Lymph # (Auto) 2000 (4503-2202) /uL [place] # (Auto) 500 (0-900) /uL Eos # (Auto) 0 (0-450) /uL Baso # (Auto) 100 (0-100) /uL Sodium 140 (137-145) mmol/L Potassium 3.8 (3.4-5.1) mmol/L Chloride 103 (98-107) mmol/L Carbon Dioxide 26 (22-32) mmol/L BUN 13 (7-17) mg/dL Creatinine 0.86 (0.52-1.04) mg/dL Estimated GFR > 60 (>60) mL/min BUN/Creatinine Ratio 15.1 (6-22) Glucose 98 (70-100) mg/dL Calcium 9.6 (8.4-10.2) mg/dL Total Bilirubin 0.5 (0.2-1.3) mg/dL AST 34 (14-36) IU/L ALT 27 (<35) IU/L Alkaline Phosphatase 63 (38-126) U/L Total Protein 8.7 H (6.3-8.2) g/dL Albumin 4.8 (3.5-5.0) g/dL Globulin 3.9 (1.7-4.1) g/dL Albumin/Globulin Ratio 1.2 (1.0-2.8) Imaging Data Ultrasound ventral abdominal skin: Radiologist's Impression: [place] [address] Ultrasound Report Signed Patient: Linda Goodwin MR#: [id number] : 2000 Acct:[id number] Age/Sex: 24 / F Date of Service: 12/03/24 Loc: ED Accession Number: [id number] Procedure: US abdomen limited Ordering Provider: Bhupendra Tabor MD PROCEDURE: US ABDOMEN LIMITED INDICATIONS: umb cellulitis, eval for abscess/fluid TECHNIQUE: Real-time focused scanning was performed of the abdomen, with image documentation. COMPARISON: None. FINDINGS AND IMPRESSION: No fluid collection or mass identified at the area of concern. Clinical followup is recommended. If there is new or worsening clinical concern, reimaging could be obtained. Dictated by: Randy Felix M.D. on 12/03/2024 at 8:29 Approved by: Randy Felix M.D. on 12/03/2024 at 8:31 [facility] Narrative Medical decision making narrative: 24-year-old female with recent course of doxycycline antibiotic for umbilical cellulitis, got better, now recurrent, no drainage. Some area of induration. We will obtain ultrasound to look for any drainable fluid/abscess. No fever, minimal tenderness, no obvious drainage on skin expression. Records review: Chart review ED visit here 11/22/2024, patient did have abdominal pain with rate sided radiation, CT scan evaluation showed no acute changes. Physical exam mentioned of slight erythema to the umbilicus, treated clinically for umbilical cellulitis with oral doxycycline at discharge. Ultrasound shows no fluid collection, no drainable abscess or hematoma or seroma like changes, verbal sono tech report. Prelim information relayed to patient, she feels comfortable leaving now without official radiology report. We will try a course of clindamycin, Rx sent to her requested pharmacy. Discharge Plan Departure Patient Disposition: Home Clinical Impression: Cellulitis of umbilicus Activity Restrictions/Additional Instructions: Recent course of oral antibiotic doxycycline for umbilical bellybutton area cellulitis after recent visit 11/22/[address] scan abdomen imaging at that time. Symptoms seemed to get better but then increased recurrence, with surrounding area of redness above the belly button, prior piercing site, no expressible fluid. Limited ultrasound of the skin region in that affected area was obtained, no drainable fluid, no suggestion of seroma or hematoma or abscess. Nothing to drain at this time. We will give further antibiotics with a different class of antibiotics to hopefully clear the infection. Prescription for clindamycin antibiotics sent to your pharmacy. Take antibiotics as directed for duration indicated. Consider recheck of your abdominal region with your regular doctor next week. Return earlier to this/nearest emergency department for any change worsening symptoms or any concerns prior. Prescriptions: New clindamycin HCl 300 mg capsule 300 mg PO QID 7 Days Qty: 28 0RF Referrals: Miscellaneous,[facility] [Primary Care Provider] - Stand Alone Forms: Patient Portal/API/Survey
[2024-12-03 07:05] LABS: Add Manual Diff / Slide Review NO; Basophils Absolute Auto 100 /uL (0-100); Basophils Percent Auto 0.7 % (0-2); Eosinophils Absolute Auto 0 /uL (0-450); Eosinophils Percent Auto 0.3 % (2-4); Hematocrit 38.4 % (36-46); Lymphocytes Absolute Auto 2000 /uL (1100-4500); Lymphocytes Percent Auto 20.5 % (25-40); Mean Corpuscular HGB Conc 33.9 % (30-36); Mean Corpuscular Hemoglobin 28.7 PG (26-34); Mean Corpuscular Volume 84.6 fL (80-100); Monocytes Absolute Auto 500 /uL (0-900); Monocytes Percent Auto 5.4 % (3-14); Neutrophils Absolute Auto 7000 /uL (1500-7000); Neutrophils Percent Auto 73.1 % (50-75); Platelet Count 287 X10^3/uL (150-400); Red Blood Cell Count 4.54 X10^6/uL (4.0-5.2); White Blood Cell Count 9.5 X10^3/uL (4.5-11.0)
[2024-12-03 07:17] LABS: Alanine Aminotransferase 27 IU/L (<35); Albumin 4.8 g/dL (3.5-5.0); Albumin Globulin Ratio 1.2 (1.0-2.8); Alkaline Phosphatase 63 U/L (38-126); Aspartate Aminotransferase 34 IU/L (14-36); BUN Creatinine Ratio 15.1 (6-22); Bilirubin Total 0.5 mg/dL (0.2-1.3); Blood Urea Nitrogen 13 mg/dL (7-17); Calcium 9.6 mg/dL (8.4-10.2); Carbon Dioxide 26 mmol/L (22-32); Chloride 103 mmol/L (98-107); Estimated Glomerular Filt Rate > 60 mL/min (>60); Globulin 3.9 g/dL (1.7-4.1); Glucose 98 mg/dL (70-100); HEMOLYSIS < 15 (0-50); Potassium 3.8 mmol/L (3.4-5.1); Sodium 140 mmol/L (137-145); Total Protein 8.7 g/dL (6.3-8.2)
--- NOTE | 2024-12-03 07:21 | DI.US.S_ITS ---
PROCEDURE: US ABDOMEN LIMITED INDICATIONS: umb cellulitis, eval for abscess/fluid TECHNIQUE: Real-time focused scanning was performed of the abdomen, with image documentation. COMPARISON: None. FINDINGS AND IMPRESSION: No fluid collection or mass identified at the area of concern. Clinical followup is recommended. If there is new or worsening clinical concern, reimaging could be obtained. Dictated by: Randy Felix M.D. on 12/03/2024 at 8:29 Approved by: Randy Felix M.D. on 12/03/2024 at 8:31
[2024-12-03 08:38] VITALS: BP 126/80; PULSE 83; RESP 15; O2SAT 98
== END 2024-12-03 08:41 | disposition home or self-care (01) ==
PROVIDERS: Emergency Medicine; Emergency Provider Emergency Medicine
DX: L03.316 Cellulitis of umbilicus (principal)
CPT/HCPCS: 36415; 76705; 80053; 85025; 99283; 99284

== ENCOUNTER → 2025-01-21 13:55 | Outpatient (CLI) | payer OTHER, SELFPAY ==
[2025-01-21 14:57] LABS: Influenza A - CEPHEID Flu A NEGATIVE (NEGATIVE); Influenza B - CEPHEID Flu B NEGATIVE (NEGATIVE); Respiratory Syncytial Virus Negative (Negative)
[2025-01-21 15:00] LABS: COVID-19 CEPHEID 4-PLEX PCR Negative (Negative)
== END ==
PROVIDERS: Visit Provider Physician Assistant Surgical
DX: R05.1 Acute cough (principal); J02.9 Acute pharyngitis, unspecified
CPT/HCPCS: 0241U; 87070